=== PATIENT | male | born 1965 | race Caucasian/White ===

== ENCOUNTER 2016-08-27 06:32 | Emergency (ER) | payer MEDICAID, OTHER ==
[~2016-08-27] VITALS: Ht 170.2 cm; Wt 65.0 kg
[~2016-08-27 06:32] MED LIST: ALBU8I INH; ASPI81TA82 PO; ATOR10 PO; GABA600T PO; LEVO.025 PO; METO25 PO
[2016-08-27 06:35] VITALS: BP 177/111; PULSE 72; RESP 18; TEMP 97.5; O2SAT 100
[2016-08-27] MEDS ORDERED: LIDOCAINE 1%/EPINEPHrine 1:100,000 SOLN 20 ML VIAL INFIL ONE (07:15)
[2016-08-27] MEDS ORDERED: HYDROmorphone HCL PF 1 MG/ML VIAL IM ONE (07:15)
[2016-08-27] MEDS ORDERED: BACT800T5 PO (07:54)
--- NOTE | 2016-08-27 07:54 | PD ---
HPI Chief Complaint: Skin Problem Time Seen by Provider: 07:02 Travel History International Travel<30 days: No Contact w/Intl Traveler<30days: No Traveled to known affect area: No History of Present Illness HPI 51-year-old male presents emergency department complaining of pain and swelling under his right arm for the past 2-3 days, worsening. There is erythema redness warmth and tenderness. His had one abscess there about a year or so ago. It had multiple skin infections before. No fevers chills, nausea vomiting , or other evidence of systemic infection. No other complaints. 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), 05/2007 (finger), 01/2011 (scrotum), 12/2013 (arm), 12/2014 (arm) Reported Meds & Prescriptions Reported Meds & Active Scripts Active Levothyroxine 25 mcg (Levothyroxine Sodium) 25 Mcg Tab 25 Mcg PO DAILY Metoprolol Tartrate 25 mg (Metoprolol Tartrate) 25 Mg Tab 25 Mg PO Q12HR Lipitor 10 mg tab (Atorvastatin) 10 Mg Tab 10 Mg PO DAILY Gabapentin 600 Mg Tab 600 Mg PO TID Ventolin Hfa (Albuterol Sulfate) 60 Puff/8 Gm Aero 2 Puff INH Q4H PRN 30 Days Reported Aspir-81 (Aspirin) 81 Mg Tab 81 Mg PO BID Review of Systems Except as stated in HPI: all other systems reviewed are Neg Physical Exam Narrative GENERAL: Well-appearing 51-year-old man, no acute distress. SKIN: Warm and dry. CARDIOVASCULAR: Warm and well perfused. RESPIRATORY: Normal rate and effort. MUSCULOSKELETAL: Focus examination the right axilla reveals some erythema fullness to the right axilla. There is 2 pustules. There is some induration but no significant organization, or fluctuance. NEUROLOGICAL: Awake and alert. No gross deficits. Data Data Last Documented VS Vital Signs Date Time Temp Pulse Resp B/P Pulse Ox O2 Delivery O2 Flow Rate FiO2 08/27/16 06:51 18 08/27/16 06:35 97.5 72 177/111 100 Orders Hydromorphone Pf Inj (Dilaudid Pf Inj) (08/27/16 07:15) Lidocai-Epi 1%-1:100,000 Inj (Xylocaine- (08/27/16 07:15) Ed Poc Ultrasound (08/27/16 ) Sulfamet-Trimeth Ds 800-160 Mg (Bactrim (08/27/16 08:00) MDM Medical Decision Making Medical Screen Exam Complete: Yes Emergency Medical Condition: Yes Differential Diagnosis Abscess, phlegmon, cellulitis, other Narrative Course Medical decision making 50-year-old male presents emergency Department with soft tissue infection under his right axilla. There is no clear fluctuance. Examined under ultrasound shows no drainable collections. Patient will be placed on antibiotics, reassess it progresses. Procedures Procedure Narrative Point of care ultrasound: Focused soft tissue ultrasounds perform a me at the bedside for the purpose of evaluating for drainable fluid collections. No drainable fluid collections were identified in the right axilla. Diagnosis Primary Impression: Cellulitis of right axilla Patient Instructions: Narcotic given in the ED Additional Instructions: Take antibiotics as prescribed. Follow-up with your primary doctor in 2-3 days. Return to the emergency department for any new or worsening symptoms. Med/Other Pt SpecificInfo: Prescription(s) given Scripts Sulfamethoxazole-Trimethoprim (Bactrim DS)800-160 Mg Tab1 Tab PO BID 7 Days Prov:Ashutosh Peres MD 08/27/16 Disposition: 01 DISCHARGE HOME Condition: Stable Ashutosh Peres MD August 27, 2016 07:54
[2016-08-27] MEDS ORDERED: SULFAMETHOXAZOLE-TRIMETHOPRIM DS 800-160 MG TAB PO ONE (08:00)
[2016-08-27 08:56] VITALS: BP 192/95
== END 2016-08-27 08:59 | disposition home or self-care (01) ==
LOC: NEPC 06:32
DX: L03.111 Cellulitis of right axilla (principal); G89.29 Other chronic pain; J44.9 Chronic obstructive pulmonary disease, unspecified; Q85.00 Neurofibromatosis, unspecified; I10 Essential (primary) hypertension; E78.5 Hyperlipidemia, unspecified; Z79.82 Long term (current) use of aspirin
CPT/HCPCS: 96372; 99284; J1170

== ENCOUNTER 2016-12-03 11:24 | Inpatient (IN) | payer MEDICAID ==
[2016-12-03] VITALS (7 sets, daily range): BP systolic 117–147; BP diastolic 60–82; PULSE 70–86; RESP 16–28; TEMP 96.4–98.4; O2SAT 89–100
[~2016-12-03] VITALS: Ht 167.6 cm; Wt 74.2 kg
[~2016-12-03 11:24] MED LIST changes: +BACT800T5 PO
[2016-12-03] MEDS ORDERED: SODIUM CHLOR 0.9% 1000 ML INJ 1,000 ML IV ONE (12:00)
[2016-12-03] MEDS ORDERED: SODIUM CHLORIDE 0.9% FLUSH 10 ML FLUSH IVF PRN (12:00)
[2016-12-03] MEDS ORDERED: ONDANSETRON HCL 4 MG/2 ML VIAL IVP ONE (12:00)
[2016-12-03] MEDS ORDERED: methylPREDNISolone SOD SUCC 125 MG/2 ML VIAL IVP ONE (12:00)
--- NOTE | 2016-12-03 12:01 | PD ---
HPI Chief Complaint: GI Complaint Time Seen by Provider: 11:39 Travel History International Travel<30 days: No Contact w/Intl Traveler<30days: No Traveled to known affect area: No History of Present Illness HPI Patient is a 51-year-old male with history of COPD, chronic pain, neurofibromatosis, tobacco abuse, COPD, hypothyroidism, presents to emergency room with multiple complaints. Patient reports that he has not been feeling well since last night, patient reports that he has been wheezing and coughing. Reports that he smokes cigarettes and was only able to smoke 2 cigarettes today. Patient reports that last night, he had an episode of vomiting, reports no abdominal pain at this time. Reports that he feels tremulous and shaky all over. Reports overall decreased appetite. Patient denies any chest pain this time, denies any fevers or chills. Patient denies any sick contacts. PFSH Past Medical History Arthritis: No Asthma: No Autoimmune Disease: No Blood Disorders: No Anxiety: Yes Depression: Yes Heart Rhythm Problems: No Cancer: No Cardiac Catheterization: No Cardiovascular Problems: Yes (CAD; HTN) High Cholesterol: No Chemotherapy: No Chest Pain: No Congestive Heart Failure: No COPD: No Cerebrovascular Accident: No Diabetes: No Diminished Hearing: No Endocrine: No GERD: Yes Glaucoma: No Genitourinary: No Headaches: Yes Hepatitis: No Hiatal Hernia: No Hypertension: No Immune Disorder: No Kidney Stones: No Musculoskeletal: Yes Neurologic: Yes Psychiatric: Yes Reproductive: No Respiratory: No Migraines: Yes Myocardial Infarction: No Radiation Therapy: No Renal Failure: No Seizures: No Sickle Cell Disease: No Sleep Apnea: No Ulcer: No Past Surgical History Abdominal Surgery: Yes AICD: No Appendectomy: Yes Arteriovenous Shunt: No Body Medical Devices: unknown Cardiac Surgery: No Cholecystectomy: No Coronary Artery Bypass Graft: No Ear Surgery: No Eye Surgery: No Genitourinary Surgery: Yes (TESTICLE) Gynecologic Surgery: No Insulin Pump: No Joint Replacement: No Neurologic Surgery: Yes (BACK FX REPAIR) Oral Surgery: No Pacemaker: No Thoracic Surgery: No Tonsillectomy: Yes Other Surgery: Yes (skingraft) Family History Family Myocardial Infarction: Yes (FATHER CO) Social History Alcohol Use: No (HX OF USE) Tobacco Use: Yes (1 PACK DAILY) Substance Use: Yes (MARIJUANA) Allergies-Medications (Allergen,Severity, Reaction): Coded Allergies: codeine (Unverified Adverse Reaction, Severe, NAUSEA & VOMITING, 12/03/16) *MDRO Multi-Drug Resistant Organism (Verified Adverse Reaction, Unknown, ) 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), 04/2007 (hand), 05/2007 (finger), 01/2011 (scrotum), 12/2013 (arm), 12/2014 (arm) Reported Meds & Prescriptions Reported Meds & Active Scripts Active Reported Clopidogrel (Clopidogrel Bisulfate) 75 Mg Tab 75 Mg PO DAILY Amitriptyline (Amitriptyline HCl) 25 Mg Tab 25 Mg PO HS Proventil Hfa 6.7 GM Inh (Albuterol Sulfate) 90 Mcg/Act Aer 1 Puff INH Q4-6H PRN Flexeril (Cyclobenzaprine HCl) 5 Mg Tab 5 Mg PO TID Metoprolol Tartrate 25 Mg Tab 25 Mg PO BID Lansoprazole 15 Mg Capdr 15 Mg PO DAILY Effexor (Venlafaxine HCl) 75 Mg Tab 75 Mg PO DAILY Lisinopril 20 Mg Tab 20 Mg PO DAILY Gabapentin 300 Mg Cap 600 Mg PO BID Review of Systems General / Constitutional: No: Fever, Chills Eyes: No: Visual changes HENT: No: Headaches Cardiovascular: No: Chest Pain or Discomfort Respiratory: Positive: Cough, Shortness of Breath, Wheezing Gastrointestinal: Positive: Nausea, Vomiting, No: Diarrhea, Abdominal Pain, Constipation Genitourinary: No: Dysuria Musculoskeletal: No: Pain Skin: No Rash Neurologic: No: Weakness Psychiatric: No: Depression Endocrine: No: Polydipsia Hematologic/Lymphatic: No: Easy Bruising Physical Exam Narrative GENERAL: mild distress SKIN: Focused skin assessment warm/dry. HEAD: Atraumatic. Normocephalic. EYES: Pupils equal and round. No scleral icterus. No injection or drainage. ENT: No nasal bleeding or discharge. Mucous membranes pink and moist. NECK: Trachea midline. No JVD. CARDIOVASCULAR: Regular rate and rhythm. No murmur appreciated. RESPIRATORY: No accessory muscle use. Patient with scattered wheezing to upper and lower lobes the lungs. GASTROINTESTINAL: Abdomen soft, non-tender, nondistended. Hepatic and splenic margins not palpable. MUSCULOSKELETAL: No obvious deformities. No clubbing. No cyanosis. No edema. NEUROLOGICAL: Awake and alert. No obvious cranial nerve deficits. Motor grossly within normal limits. Normal speech. PSYCHIATRIC: Appropriate mood and affect; insight and judgment normal. Data Data Last Documented VS Vital Signs Date Time Temp Pulse Resp B/P (MAP) Pulse Ox O2 Delivery O2 Flow Rate FiO2 12/03/16 12:15 100 21 12/03/16 11:49 Nasal Cannula 2.00 12/03/16 11:40 98.0 77 28 Orders Orders Complete Blood Count With Diff (12/03/16 11:46) Comprehensive Metabolic Panel (12/03/16 11:46) B-Type Natriuretic Peptide (12/03/16 11:46) Act Partial Throm Time (Ptt) (12/03/16 11:46) Prothrombin Time / Inr (Pt) (12/03/16 11:46) Magnesium (Mg) (12/03/16 11:46) Ckmb (Isoenzyme) Profile (12/03/16 11:46) Troponin I (12/03/16 11:46) Arterial Blood Gas (Abg) (12/03/16 11:46) Urinalysis - C+S If Indicated (12/03/16 11:46) Blood Culture (12/03/16 11:46) Iv Access Insert/Monitor (12/03/16 11:46) Electrocardiogram (12/03/16 11:46) Ecg Monitoring (12/03/16 11:46) Oximetry (12/03/16 11:46) Chest, Single Ap (12/03/16 11:46) Sodium Chloride 0.9% Flush (Ns Flush) (12/03/16 12:00) Methylprednisolone So Succ Inj (Solumedr (12/03/16 12:00) Albuterol-Ipratropium Neb (Duoneb Neb) (12/03/16 12:00) Lactic Acid Sepsis Protocol (12/03/16 11:48) Sodium Chlor 0.9% 1000 Ml Inj (Ns 1000 M (12/03/16 12:00) Ondansetron Inj (Zofran Inj) (12/03/16 12:00) Urinary Catheter Insert/Apply (12/03/16 12:45) Admit To Inpatient (12/03/16 ) Vital Signs (Adult) Q4H (12/03/16 14:32) Activity Oob With Assistance (12/03/16 14:32) Intake + Output RENETTA.QSHIFT (12/03/16 14:32) Diet Regular Basic (12/03/16 Dinner) Sodium Chlor 0.9% 1000 Ml Inj (Ns 1000 M (12/03/16 15:00) Sodium Chloride 0.9% Flush (Ns Flush) (12/03/16 21:00) Ondansetron Inj (Zofran Inj) (12/03/16 14:45) Comprehensive Metabolic Panel (12/04/16 06:00) Complete Blood Count With Diff (12/04/16 06:00) Pt Request For Service (12/03/16 14:32) Case Management Consult (12/03/16 14:32) Heparin Inj (Heparin Inj) (12/03/16 15:00) Scd Bilateral/Knee High RENETTA.BID (12/03/16 14:32) Naloxone Inj (Narcan Inj) (12/03/16 14:45) Docusate Sodium-Senna (Madhavi-Colace) (12/03/16 21:00) Magnesium Hydroxide Liq (Milk Of Magnesi (12/03/16 14:45) Sennosides (Senokot) (12/03/16 14:45) Bisacodyl Supp (Dulcolax Supp) (12/03/16 14:45) Lactulose Liq (Lactulose Liq) (12/03/16 14:45) Inpatient Certification (12/03/16 ) Creatine Kinase (Cpk) (12/03/16 14:36) Sodium, Random Urine (12/03/16 14:36) Creatinine, Random Urine (12/03/16 14:36) Consult Nephrology (12/03/16 ) Us Kidney/Renal/Bladder (12/03/16 ) Clopidogrel (Plavix) (12/04/16 09:00) Metoprolol Tartrate (Lopressor) (12/03/16 21:00) Pantoprazole (Protonix) (12/04/16 09:00) Admit Order (Ed Use Only) (12/03/16 14:39) Albuterol Hfa Inh (Ventolin Hfa Inh) (12/03/16 15:00) Labs Laboratory Tests Test 12/03/16 11:45 12/03/16 12:20 12/03/16 13:00 White Blood Count 10.6 TH/MM3 Red Blood Count 4.08 MIL/MM3 Hemoglobin 12.6 GM/DL Hematocrit 36.8 % Mean Corpuscular Volume 90.2 FL Mean Corpuscular Hemoglobin 30.8 PG Mean Corpuscular Hemoglobin Concent 34.1 % Red Cell Distribution Width 14.0 % Platelet Count 325 TH/MM3 Mean Platelet Volume 8.2 FL Neutrophils (%) (Auto) 54.5 % Lymphocytes (%) (Auto) 27.5 % Monocytes (%) (Auto) 14.2 % Eosinophils (%) (Auto) 3.2 % Basophils (%) (Auto) 0.6 % Neutrophils # (Auto) 5.8 TH/MM3 Lymphocytes # (Auto) 2.9 TH/MM3 Monocytes # (Auto) 1.5 TH/MM3 Eosinophils # (Auto) 0.3 TH/MM3 Basophils # (Auto) 0.1 TH/MM3 CBC Comment DIFF FINAL Differential Comment Prothrombin Time 9.6 SEC Prothromb Time International Ratio 0.9 RATIO Activated Partial Thromboplast Time 28.8 SEC Blood Urea Nitrogen 78 MG/DL Creatinine 6.13 MG/DL Random Glucose 93 MG/DL Total Protein 7.4 GM/DL Albumin 3.3 GM/DL Calcium Level 9.2 MG/DL Magnesium Level 2.9 MG/DL Alkaline Phosphatase 103 U/L Aspartate Amino Transf (AST/SGOT) 12 U/L Alanine Aminotransferase (ALT/SGPT) 16 U/L Total Bilirubin 0.4 MG/DL Sodium Level 129 MEQ/L Potassium Level 4.5 MEQ/L Chloride Level 86 MEQ/L Carbon Dioxide Level 35.2 MEQ/L Anion Gap 8 MEQ/L Estimat Glomerular Filtration Rate 10 ML/MIN Lactic Acid Level 1.3 mmol/L Total Creatine Kinase 28 U/L Troponin I LESS THAN 0.02 NG/ML B-Type Natriuretic Peptide 10 PG/ML Blood Gas Puncture Site LT BRACHIAL Blood Gas Patient Temperature 98.6 Blood Gas HCO3 33 mmol/L Blood Gas Base Excess 8.9 mmol/L Blood Gas Oxygen Saturation 85 % Arterial Blood pH 7.47 Arterial Blood Partial Pressure CO2 45 mmHg Arterial Blood Partial Pressure O2 61 mmHG Arterial Blood Oxygen Content 13.2 Vol % Arterial Blood Carboxyhemoglobin 8.4 % Arterial Blood Methemoglobin 0.7 % Blood Gas Hemoglobin 11.1 G/DL Oxygen Delivery Device RA Urine Color LIGHT-YELLOW Urine Turbidity CLEAR Urine pH 7.5 Urine Specific [place] 1.008 Urine Protein TRACE mg/dL Urine Glucose (UA) NEG mg/dL Urine Ketones NEG mg/dL Urine Occult Blood TRACE Urine Nitrite NEG Urine Bilirubin NEG Urine Urobilinogen LESS THAN 2.0 MG/DL Urine Leukocyte Esterase NEG Urine RBC 1 /hpf Urine WBC LESS THAN 1 /hpf Microscopic Urinalysis Comment CULT NOT INDICATED MDM Medical Decision Making Medical Screen Exam Complete: Yes Emergency Medical Condition: Yes Interpretation(s) EKG at 1150: NSR at 75bpm, qt/qtc: 341/370, no acute st or t wave changes Vital Signs Date Time Temp Pulse Resp B/P (MAP) Pulse Ox O2 Delivery O2 Flow Rate FiO2 12/03/16 11:49 100 Nasal Cannula 2.00 12/03/16 11:40 98.0 77 28 118/66 (83) Room Air 12/03/16 11:27 98.1 86 28 117/60 (79) 89 Room Air Differential Diagnosis Differential includes COPD exacerbation, pneumonia, arrhythmia, ACS, gastroenteritis, electrolyte abnormality, tobacco abuse Narrative Course Patient is a 51-year-old male who presents to emergency room complaints of not feeling well since last night. Symptoms began last night with nausea and vomiting 1, reports no abdominal pain or nausea this morning. Patient reports that this morning, he was only able to smoke 2 cigarettes, he has been feeling short of breath and has been coughing and wheezing. Patient was placed on a bus monitor upon arrival to the emergency room. EKG was obtained, no acute ST-T wave changes. X-ray of the chest ordered, lab work ordered including blood cultures ordered as patient has increased respiratory rate and hypoxia. His oxygen saturation is 89% on room air. Patient is wheezing on exam and does have history of COPD. IV steroids as well as neb treatments ordered. CBC & BMP Diagram 12/03/16 11:45 Laboratory Tests Test 12/03/16 11:45 12/03/16 12:20 White Blood Count 10.6 TH/MM3 (4.0-11.0) Red Blood Count 4.08 MIL/MM3 (4.50-5.90) Hemoglobin 12.6 GM/DL (13.0-17.0) Hematocrit 36.8 % (39.0-51.0) Mean Corpuscular Volume 90.2 FL (80.0-100.0) Mean Corpuscular Hemoglobin 30.8 PG (27.0-34.0) Mean Corpuscular Hemoglobin Concent 34.1 % (32.0-36.0) Red Cell Distribution Width 14.0 % (11.6-17.2) Platelet Count 325 TH/MM3 (150-450) Mean Platelet Volume 8.2 FL (7.0-11.0) Neutrophils (%) (Auto) 54.5 % (16.0-70.0) Lymphocytes (%) (Auto) 27.5 % (9.0-44.0) Monocytes (%) (Auto) 14.2 % (0.0-8.0) Eosinophils (%) (Auto) 3.2 % (0.0-4.0) Basophils (%) (Auto) 0.6 % (0.0-2.0) Neutrophils # (Auto) 5.8 TH/MM3 (1.8-7.7) Lymphocytes # (Auto) 2.9 TH/MM3 (1.0-4.8) Monocytes # (Auto) 1.5 TH/MM3 (0-0.9) Eosinophils # (Auto) 0.3 TH/MM3 (0-0.4) Basophils # (Auto) 0.1 TH/MM3 (0-0.2) CBC Comment DIFF FINAL Differential Comment Prothrombin Time 9.6 SEC (9.8-11.6) Prothromb Time International Ratio 0.9 RATIO Activated Partial Thromboplast Time 28.8 SEC (24.3-30.1) Blood Urea Nitrogen 78 MG/DL (7-18) Creatinine 6.13 MG/DL (0.60-1.30) Random Glucose 93 MG/DL (74-106) Albumin 3.3 GM/DL (3.4-5.0) Calcium Level 9.2 MG/DL (8.5-10.1) Magnesium Level 2.9 MG/DL (1.5-2.5) Aspartate Amino Transf (AST/SGOT) 12 U/L (15-37) Alanine Aminotransferase (ALT/SGPT) 16 U/L (12-78) Sodium Level 129 MEQ/L (136-145) Potassium Level 4.5 MEQ/L (3.5-5.1) Chloride Level 86 MEQ/L (98-107) Carbon Dioxide Level 35.2 MEQ/L (21.0-32.0) Anion Gap 8 MEQ/L (5-15) Estimat Glomerular Filtration Rate 10 ML/MIN (>89) Lactic Acid Level 1.3 mmol/L (0.4-2.0) Blood Gas Puncture Site LT BRACHIAL Blood Gas Patient Temperature 98.6 Blood Gas HCO3 33 mmol/L (22-26) Blood Gas Base Excess 8.9 mmol/L (-2-2) Blood Gas Oxygen Saturation 85 % (90-100) Arterial Blood pH 7.47 (7.380-7.420) Arterial Blood Partial Pressure CO2 45 mmHg (38-42) Arterial Blood Partial Pressure O2 61 mmHG (61-120) Arterial Blood Oxygen Content 13.2 Vol % (12.0-20.0) Arterial Blood Carboxyhemoglobin 8.4 % (0-4) Arterial Blood Methemoglobin 0.7 % (0-2) Blood Gas Hemoglobin 11.1 G/DL (12.0-16.0) Oxygen Delivery Device RA patient hypoxic with o2 sat of 85% on room air, will put patient on 2L NC of oxygen bun 78/ cr 6.13 - patient with acute renal failure, cr on 01/07/15 was 0.87. [place] catheter ordered to monitor I's and O's Patient will require admission to the hospital Case reviewed with Dr. Cladwell who accepts pt to service Critical Care Narrative Aggregate critical care time was 30 minutes. Time to perform other separately billable procedures was not included in the critical care time. My time did not include minutes spent treating any other patients simultaneously or on activities that did not directly contribute to the patient's treatment. The services I provided to this patient were to treat and/or prevent clinically significant deterioration that could result in: , decompensation, deterioration I provided critical care services requiring my management, as noted below: Chart data review, documentation time, medication orders and management, vital sign assessments/reviewing monitor data, ordering and reviewing lab tests, ordering and interpreting/reviewing x-rays and diagnostic studies, care of the patient and discussion of the patient with the admitting physicians. Diagnosis Primary Impression: Hypoxia Additional Impressions: COPD exacerbation Renal failure Admitting Information Admitting Physician Requests: Admit Mara Piedra DO Dec 03, 2016 12:01
[2016-12-03] MEDS ORDERED: GABA300C5 PO (12:04)
[2016-12-03] MEDS ORDERED: LISI-515 PO (12:04)
[2016-12-03] MEDS ORDERED: ALBU6.7H INH (12:04)
[2016-12-03] MEDS ORDERED: CYCL5TAB PO (12:04)
[2016-12-03] MEDS ORDERED: VENL75TA PO (12:04)
[2016-12-03] MEDS ORDERED: METO25TA3 PO (12:04)
[2016-12-03] MEDS ORDERED: LANS15CA PO (12:04)
[2016-12-03] MEDS ORDERED: AMIT25TA9 PO (12:05)
[2016-12-03] MEDS ORDERED: CLOP75TA PO (12:05)
[2016-12-03] MEDS: RESP: ALBUTEROL 2.5 MG/IPRATROPIUM 0.5 MG NEB (SCH) INH ×2 (12:13→12:14)
[2016-12-03 12:18] LABS: AUTOMATED NEUTROPHIL # 5.8 TH/MM3 (1.8-7.7); BASOPHIL # 0.1 TH/MM3 (0-0.2); BASOPHIL % 0.6 % (0.0-2.0); EOSINOPHIL # 0.3 TH/MM3 (0-0.4); EOSINOPHIL % 3.2 % (0.0-4.0); HEMATOCRIT 36.8 % (39.0-51.0); HEMO FLAGS DIFF FINAL; LYMPH % 27.5 % (9.0-44.0); LYMPHOCYTE # 2.9 TH/MM3 (1.0-4.8); MEAN CELL VOLUME 90.2 FL (80.0-100.0); MEAN CORPUSCULAR HEMOGLOBIN 30.8 PG (27.0-34.0); MEAN CORPUSCULAR HGB CONC 34.1 % (32.0-36.0); MONO % 14.2 % (0.0-8.0); NEUT % 54.5 % (16.0-70.0); PLATELET COUNT 325 TH/MM3 (150-450); RED BLOOD COUNT 4.08 MIL/MM3 (4.50-5.90); WHITE BLOOD COUNT 10.6 TH/MM3 (4.0-11.0)
[2016-12-03 12:29] LABS: APTT (PATIENT) 28.8 SEC (24.3-30.1); INTERNATIONAL NORMALIZED RATIO 0.9 RATIO; PROTHROMBIN TIME - PATIENT 9.6 SEC (9.8-11.6)
[2016-12-03 12:34] LABS: BLOOD GAS BASE EXCESS 8.9 mmol/L (-2-2); BLOOD GAS CARBOXYHEMOGLOBIN 8.4 % (0-4); BLOOD GAS HCO3 33 mmol/L (22-26); BLOOD GAS METHEMOGLOBIN 0.7 % (0-2); BLOOD GAS O2 HGB SATURATION 85 % (90-100); BLOOD GAS OXYGEN CONTENT 13.2 Vol % (12.0-20.0); BLOOD GAS PCO2 45 mmHg (38-42); BLOOD GAS PO2 61 mmHG (61-120); BLOOD GAS TOTAL HGB 11.1 G/DL (12.0-16.0); CRITICAL VALUE YES; OXYGEN DEVICE RA; TEMP CORR TO 98.6
[2016-12-03 12:35] LABS: ALT (GPT) 16 U/L (12-78); ANION GAP 8 MEQ/L (5-15); AST (GOT) 12 U/L (15-37); BICARBONATE 35.2 MEQ/L (21.0-32.0); BLOOD UREA NITROGEN 78 MG/DL (7-18); CHLORIDE 86 MEQ/L (98-107); GLOMERULAR FILTRATION RATE 10 ML/MIN (>89); MAGNESIUM 2.9 MG/DL (1.5-2.5); POTASSIUM 4.5 MEQ/L (3.5-5.1); SODIUM (NA) 129 MEQ/L (136-145)
[2016-12-03 12:35] LABS: DRAW SITE LT BRACHIAL; NUMBER OF ARTERIAL PUNCTURES 1; STAT YES; ULNAR PULSE Y
[2016-12-03 12:39] LABS: ALKALINE PHOSPHATASE 103 U/L (45-117); TOTAL BILIRUBIN ADULT 0.4 MG/DL (0.2-1.0)
[2016-12-03 12:56] LABS: CREATINE KINASE 28 U/L (39-308)
--- NOTE | 2016-12-03 13:04 | RADRPT ---
EXAM DATE/TIME: 12/03/2016 12:50 [facility] COMPARISON: CHEST SINGLE AP, January 06, 2015, 10:47. INDICATIONS : Possible seizures, not feeling right. MEDICAL HISTORY : None. SURGICAL HISTORY : None. ENCOUNTER: Initial ACUITY: 1 day PAIN SCORE: Non-responsive. LOCATION: Bilateral chest FINDINGS: A single view of the chest demonstrates the lungs to be symmetrically aerated without evidence of mas s, infiltrate or effusion. The cardiomediastinal contours are unremarkable. Osseous structures are intact. CONCLUSION: No acute disease. Fareed Lynn MD FACR on December 03, 2016 at 13:02 Board Certified Radiologist. This report was verified electronically.
[2016-12-03 13:19] LABS: BLOOD, URINE TRACE (NEG); COMMENT (UR) CULT NOT INDICATED; CULTURE IF INDICATED CULT NOT INDICATED; GLUCOSE,URINE NEG (NEG); KETONE, URINE NEG (NEG); NITRITE,URINE NEG (NEG); PH, URINE 7.5 (5.0-8.5); URINE COLOR LIGHT-YELLOW (YELLW/STRAW)
[2016-12-03] MEDS ORDERED: BISACODYL 10 MG SUPP RECTAL PRN (14:45)
[2016-12-03] MEDS ORDERED: LACTULOSE SYRUP 20 GM/30 ML CUP PO PRN (14:45)
[2016-12-03] MEDS ORDERED: MAGNESIUM HYDROXIDE SUSP 30 ML CUP PO PRN (14:45)
[2016-12-03] MEDS ORDERED: SENNOSIDES 8.6 MG TAB PO PRN (14:45)
[2016-12-03] MEDS ORDERED: ONDANSETRON HCL 4 MG/2 ML VIAL IVP PRN (14:45)
[2016-12-03] MEDS ORDERED: SODIUM CHLORIDE 0.9% FLUSH 10 ML FLUSH IV FLUSH PRN (14:45)
[2016-12-03] MEDS ORDERED: NALOXONE HCL 0.4 MG/ML AMP IV PRN (14:45)
[2016-12-03] MEDS ORDERED: ALBUTEROL SULFATE 90 MCG/ACT HFA 18 GM INHALER INH PRN (15:00)
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
[2016-12-03] MEDS ORDERED: DIATRIZOATE MEGLUM/DIATRIZOATE SOD 9 ML CUP ONE (16:43)
[2016-12-03] MEDS: HEPARIN SODIUM - SQ 10,000 UNITS/ML VIAL SQ SCH (16:50)
[2016-12-03] MEDS: SODIUM CHLOR 0.9% 1000 ML INJ 1,000 ML IV SCH ×2 (16:50→20:05)
[2016-12-03] MEDS ORDERED: DIATRIZOATE MEGLUM/DIATRIZOATE SOD 9 ML CUP PO ONE (17:00)
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
--- NOTE | 2016-12-03 17:15 | RADRPT ---
EXAM DATE/TIME: 12/03/2016 16:23 [facility] COMPARISON: No previous studies available for comparison. INDICATIONS : Increasd BUN/Creatnine. MEDICAL HISTORY : Hypertension. Gastroesophageal reflux disease. Numbness. Dizziness. Depression. Anxiety. Claustroph obia. SURGICAL HISTORY : Tonsillectomy. Appendectomy. Back surgery. Testicular surgery. Left foot surgery. Skin graft. ENCOUNTER: Initial ACUITY: 1 day PAIN SCORE: 0/10 LOCATION: Bilateral flank MEASUREMENTS: RIGHT KIDNEY: 10.4 x 4.3 x 5.0 cm LEFT KIDNEY: 11.6 x 5.2 x 4.8 cm FINDINGS: RIGHT KIDNEY: Renal cortex is normal in thickness and echotexture. No hydronephrosis, stone, or mass. LEFT KIDNEY: Renal cortex is normal in thickness and echotexture. No hydronephrosis, stone, or mass. BLADDER: A South catheter is present in the bladder. There is no focal abnormality. CONCLUSION: The kidneys are unremarkable in appearance with no evidence of hydronephrosis. Zac Zuniga MD on December 03, 2016 at 17:13 Board Certified Radiologist. This report was verified electronically.
--- NOTE | 2016-12-03 19:28 | RADRPT ---
EXAM DATE/TIME: 12/03/2016 19:05 [facility] COMPARISON: CT ABDOMEN & PELVIS W CONTRAST, January 10, 2010, 18:45. INDICATIONS : Decreased appetite with nausea past week. ORAL CONTRAST: Prescribed oral contrast ingested. RADIATION DOSE: 13.46 CTDIvol (mGy) MEDICAL HISTORY : Cardiovascular disease. Hypertension. Chronic obstructive pulmonary disease.GERD SURGICAL HISTORY : Appendectomy. ENCOUNTER: Initial ACUITY: 1 week PAIN SCALE: 0/10 LOCATION: abdomen TECHNIQUE: Volumetric scanning of the abdomen and pelvis was performed. Using automated exposure control and ad justment of the mA and/or kV according to patient size, radiation dose was kept as low as reasonably achievable to obtain optimal diagnostic quality images. DICOM format image data is available electro nically for review and comparison. FINDINGS: LOWER LUNGS: The visualized lower lungs are clear. LIVER: Homogeneous density without lesion. There is no dilation of the biliary tree. No calcified gallston es. SPLEEN: Normal size without lesion. PANCREAS: Within normal limits. KIDNEYS: Normal in size and shape. There is no mass, stone, or hydronephrosis. ADRENAL GLANDS: Within normal limits. VASCULAR: There is no aortic aneurysm. BOWEL/MESENTERY: The stomach, small bowel, and colon demonstrate no acute abnormality. There is no free intraperitone al air or fluid. ABDOMINAL WALL: Within normal limits. RETROPERITONEUM: There is no lymphadenopathy. BLADDER: A South catheter is present with small air-fluid level. REPRODUCTIVE: Within normal limits. INGUINAL: There is no lymphadenopathy or hernia. MUSCULOSKELETAL: Within normal limits for patient age. CONCLUSION: 1. Unremarkable bowel gas pattern with no inflammatory change or obstruction. 2. Unremarkable gallbladder. Zac Zuniga MD on December 03, 2016 at 19:24 Board Certified Radiologist. This report was verified electronically.
[2016-12-03] MEDS: SODIUM CHLORIDE 0.9% FLUSH 10 ML FLUSH IV FLUSH SCH (20:00)
[2016-12-03] MEDS: DOCUSATE SODIUM 50 MG/SENNA 8.6 MG TAB PO SCH (20:05)
[2016-12-03] MEDS: METOPROLOL TARTRATE 25 MG TAB PO SCH (20:05)
[2016-12-03] MEDS: RESP: ALBUTEROL 2.5 MG/IPRATROPIUM 0.5 MG NEB (SCH) NEB (22:00)
[2016-12-03] MEDS ORDERED: diphenhydrAMINE HCL 50 MG CAP PO ONE (22:45)
[2016-12-03] MEDS: ACETAMINOPHEN 325 MG TAB PO PRN (23:16)
[2016-12-04] VITALS (7 sets, daily range): BP systolic 113–142; BP diastolic 60–82; PULSE 72–80; RESP 16–18; TEMP 96.3–98; O2SAT 97–100
[2016-12-04] MEDS: HEPARIN SODIUM - SQ 10,000 UNITS/ML VIAL SQ SCH ×2 (03:23→15:35)
[2016-12-04] MEDS: SODIUM CHLOR 0.9% 1000 ML INJ 1,000 ML IV SCH ×3 (03:28→17:41)
[2016-12-04] MEDS: RESP: ALBUTEROL 2.5 MG/IPRATROPIUM 0.5 MG NEB (SCH) NEB ×4 (04:41→21:36)
[2016-12-04 07:33] LABS: AUTOMATED NEUTROPHIL # 5.8 TH/MM3 (1.8-7.7); BASOPHIL % 0.2 % (0.0-2.0); EOSINOPHIL % 0.1 % (0.0-4.0); HEMATOCRIT 32.5 % (39.0-51.0); HEMO FLAGS DIFF FINAL; LYMPH % 15.7 % (9.0-44.0); LYMPHOCYTE # 1.3 TH/MM3 (1.0-4.8); MEAN CELL VOLUME 91.8 FL (80.0-100.0); MEAN CORPUSCULAR HEMOGLOBIN 31.5 PG (27.0-34.0); MEAN CORPUSCULAR HGB CONC 34.3 % (32.0-36.0); MONO % 11.1 % (0.0-8.0); NEUT % 72.9 % (16.0-70.0); PLATELET COUNT 261 TH/MM3 (150-450); RED BLOOD COUNT 3.54 MIL/MM3 (4.50-5.90); RED CELL DISTRIBUTION WIDTH 13.5 % (11.6-17.2)
[2016-12-04 08:13] LABS: ALKALINE PHOSPHATASE 84 U/L (45-117); ALT (GPT) 13 U/L (12-78); ANION GAP 5 MEQ/L (5-15); AST (GOT) 10 U/L (15-37); BICARBONATE 30.6 MEQ/L (21.0-32.0); BLOOD UREA NITROGEN 59 MG/DL (7-18); CHLORIDE 100 MEQ/L (98-107); GLOMERULAR FILTRATION RATE 22 ML/MIN (>89); POTASSIUM 4.8 MEQ/L (3.5-5.1); SODIUM (NA) 136 MEQ/L (136-145); TOTAL BILIRUBIN ADULT 0.2 MG/DL (0.2-1.0)
[2016-12-04] MEDS: ASPIRIN EC 81 MG TABEC PO SCH (08:19)
[2016-12-04] MEDS: PANTOPRAZOLE SOD 20 MG DELAYED RELEASE TAB PO SCH (08:19)
[2016-12-04] MEDS: CLOPIDOGREL 75 MG TAB PO SCH (08:19)
[2016-12-04] MEDS: DOCUSATE SODIUM 50 MG/SENNA 8.6 MG TAB PO SCH ×2 (08:20→20:27)
[2016-12-04] MEDS: METOPROLOL TARTRATE 25 MG TAB PO SCH ×2 (08:20→20:26)
[2016-12-04] MEDS: SODIUM CHLORIDE 0.9% FLUSH 10 ML FLUSH IV FLUSH SCH ×2 (08:22→20:27)
[2016-12-04] MEDS: ACETAMINOPHEN 325 MG TAB PO PRN ×2 (08:22→20:26)
--- NOTE | 2016-12-04 13:49 | EKG ---
Date Performed: 12/03/2016 Time Performed: 11:50:45 PTAGE: 51 years EKG: Sinus rhythm SEPTAL MYOCARDIAL INFARCTION ABNORMAL ECG Compared to prior tracing no significant change PREVIOUS TRACING : 12/03/2016 11.50 DOCTOR: Sreekanth Cortez Interpretating Date/Time 12/04/2016 13:46:47
--- NOTE | 2016-12-04 19:02 | HHI.NPPN ---
Subjective History of Present Illness 51-year-old with acute renal failure and dehydration Review of Systems General Constitutional: Fatigue Objective Data Data 12/04/16 12/05/16 18:59 06:59 Intake Total 1440 ml Output Total 1200 ml Balance 240 ml Intake Oral 1440 ml Output Urine Total 1200 ml # Bowel Movements 0 Vital Signs Date Time Temp Pulse Resp B/P (MAP) Pulse Ox O2 Delivery O2 Flow Rate FiO2 12/04/16 17:36 98 12/04/16 16:00 96.4 76 16 118/67 (84) 100 12/04/16 12:00 98.0 73 17 137/72 (93) 97 12/04/16 11:02 99 12/04/16 09:22 18 12/04/16 08:00 96.3 72 17 114/65 (81) 100 12/04/16 00:00 96.6 73 18 113/60 (77) 99 12/03/16 22:03 97 Nasal Cannula 2.00 12/03/16 20:00 98.4 70 18 134/82 (99) 96 -: 12/04/16 0633 12/04/16 0633 Physical Exam General Appearance: Well Developed, Well Nourished Neck Neck Exam: Neck Supple Pulmonary Resp Exam: Clear Bilaterally, Breath Sounds Equal Cardiology CV Exam: Regular, Normal Sinus Rhythm Gastrointestinal/Abdomen GI Exam: Soft, Non-Tender, Bowel Sounds Present Extremeties Extremities Exam: No Edema Neurologic Neuro Exam: Alert, Awake Assessment/Plan Problem List: (1) Renal failure ICD Codes: N19 - Unspecified kidney failure Status: Acute Plan: Agree with IV hydration severe dehydration was resolving Ultrasound of the kidney was unremarkable At this point that he is recovering and she can be discharged from nephrology point of view if creatinine continues to decline We'll follow as needed (2) H/O neurofibromatosis ICD Codes: Q85.00 - History of neurofibromatosis Status: Chronic (3) Chronic pain ICD Codes: G89.29 - Other chronic pain Status: Chronic Plan: Uses marijuana Дмитрий Cordero MD Dec 04, 2016 19:02
--- NOTE | 2016-12-04 19:23 | HHI.PR ---
Subjective Remarks Patient seen this afternoon around 2:30 PM. Says he is feeling better. Shakes of almost resolved. Denies any nausea today. He feels that nausea and vomiting is secondary to his reflux. He says he smokes marijuana but refuses to discontinue. He says he thinks the marijuana causes nausea by increasing his appetite, then he feels full and nauseous. We discussed the possibility of narcotics exacerbating pre-existing gastroparesis, and I recommended complete cessation.denies any chest pain or shortness of breath. Objective Vital Signs Date Time Temp Pulse Resp B/P (MAP) Pulse Ox O2 Delivery O2 Flow Rate FiO2 12/04/16 17:36 98 12/04/16 16:00 96.4 76 16 118/67 (84) 100 12/04/16 12:00 98.0 73 17 137/72 (93) 97 12/04/16 11:02 99 12/04/16 09:22 18 12/04/16 08:00 96.3 72 17 114/65 (81) 100 12/04/16 00:00 96.6 73 18 113/60 (77) 99 12/03/16 22:03 97 Nasal Cannula 2.00 12/03/16 20:00 98.4 70 18 134/82 (99) 96 I/O 12/03/16 12/03/16 12/03/16 12/04/16 12/04/16 12/04/16 07:00 15:00 23:00 07:00 15:00 23:00 Intake Total 1000 ml 240 ml 1130 ml 3350 ml Output Total 850 ml 400 ml 1200 ml Balance 1000 ml -610 ml 730 ml 2150 ml Intake Oral 240 ml 240 ml 1440 ml IV Total 1000 ml 890 ml 1910 ml Output Urine Total 850 ml 400 ml 1200 ml # Bowel Movements 0 Result Diagram: 12/04/16 0633 12/04/16 0633 Objective Remarks GENERAL: sitting up in bed. Appears comfortable. Alert and oriented. No tremors today. SKIN: Warm and dry. HEAD: Normocephalic. EYES: No scleral icterus. No injection or drainage. NECK: Supple, trachea midline. No JVD. CARDIOVASCULAR: Regular rate and rhythm without murmurs, gallops, or rubs. RESPIRATORY: Breath sounds equal bilaterally. No accessory muscle use. GASTROINTESTINAL: Abdomen soft, non-tender, nondistended. MUSCULOSKELETAL: No cyanosis, or edema. BACK: Nontender without obvious deformity. No CVA tenderness. A/P Assessment and Plan == 12/04/16. creatinine improving 3.0 today. Renal ultrasound with no acute findings. Continue IV fluids. Nausea and vomiting on admission has resolved currently. Continue PPI, Tums. Could be marijuana hyperemesis versus gastroparesis exacerbated by narcotics. Nevertheless has improved. recommend complete cessation of both marijuana and narcotics. //Acute kidney injury -Creatinine 6.13 from suspected normal baseline. -1 L out over the first hour after South placement. Possible obstruction. -Ultrasound ordered and pending. -Hold lisinopril. Hold gabapentin. -Renal ultrasound with no acute findings. -Nephrology consulted. //Abdominal tenderness on exam Could be secondary to constipation or recent narcotics. Patient with nausea, vomiting, poor by mouth intake likely causing acute kidney injury -periUmbilical Tenderness to palpation on exam. CT abdomen with no acute findings. //Suspected toxic Encephalopathy -Confused, but nonfocal. -Patient was on gabapentin, likely supratherapeutic levels now. -Also with uremia. -Asterixis secondary to uremia. -Nonfocal on exam. -Pain to monitor and Treat acute kidney injury as above. //both metabolic and Respiratory alkalosis. -ABG reviewed. -Hypoxia secondary to smoking, high carboxyhemoglobin content. likely secondary to dehydration, uremia versus gabapentin toxicity. -Continue IV fluids. Continue to monitor. //Hypovolemic Hyponatremia. Acute. -Sodium 126 on admission. -Likely secondary to dehydration. Unknown baseline. -IV fluids. Nephrology following. Appreciate assistance. //Possible COPD exacerbation Doubt that this is a standard COPD exacerbation. X-ray no acute findings. She received nebs, IV steroids in the ER without improvement. Duo nebs ordered. Continue to monitor. //Coronary artery disease. Continue home medications of metoprolol, Plavix. //Depression. We'll hold home medications until kidney function improves. //Chronic back pain. Hold gabapentin secondary to suspected toxicity. Tylenol as necessary //GERD. Continue PPI. //Narcotic abuse Patient reports feeling his brothers narcotics several days prior to admission. -Counseling provided. Patient says he will not do this again. //Tobacco abuse. Cessation counseling provided. //Prophylaxis. SCDs. Subcutaneous heparin. Discharge Planning if creatinine continues improving, possible discharge tomorrow. Jorge Luis Caldwell MD Dec 04, 2016 19:23
[2016-12-04] MEDS: CALCIUM CARBONATE 500 MG CHEWABLE TAB CHEW SCH (20:26)
[2016-12-05] VITALS: BP 128/81; PULSE 71; RESP 17; TEMP 96.2; O2SAT 100
[2016-12-05] MEDS: SODIUM CHLOR 0.9% 1000 ML INJ 1,000 ML IV SCH (00:19)
[2016-12-05] MEDS: HEPARIN SODIUM - SQ 10,000 UNITS/ML VIAL SQ SCH (03:00)
[2016-12-05] MEDS: RESP: ALBUTEROL 2.5 MG/IPRATROPIUM 0.5 MG NEB (SCH) NEB ×2 (04:00→09:50)
[2016-12-05 06:00] LABS: BICARBONATE 24.8 MEQ/L (21.0-32.0); MAGNESIUM 2.1 MG/DL (1.5-2.5); POTASSIUM 4.9 MEQ/L (3.5-5.1)
[2016-12-05 06:19] LABS: AUTOMATED NEUTROPHIL # 3.5 TH/MM3 (1.8-7.7); BASOPHIL # 0.1 TH/MM3 (0-0.2); BASOPHIL % 0.8 % (0.0-2.0); EOSINOPHIL # 0.2 TH/MM3 (0-0.4); EOSINOPHIL % 3.3 % (0.0-4.0); HEMATOCRIT 33.2 % (39.0-51.0); HEMO FLAGS DIFF FINAL; LYMPH % 33.7 % (9.0-44.0); LYMPHOCYTE # 2.2 TH/MM3 (1.0-4.8); MEAN CELL VOLUME 93.6 FL (80.0-100.0); MEAN CORPUSCULAR HEMOGLOBIN 31.3 PG (27.0-34.0); MEAN CORPUSCULAR HGB CONC 33.5 % (32.0-36.0); MONO % 8.2 % (0.0-8.0); PLATELET COUNT 243 TH/MM3 (150-450); RED BLOOD COUNT 3.55 MIL/MM3 (4.50-5.90); RED CELL DISTRIBUTION WIDTH 13.9 % (11.6-17.2); WHITE BLOOD COUNT 6.6 TH/MM3 (4.0-11.0)
[2016-12-05 08:00] VITALS: BP 123/83; PULSE 73; RESP 20; TEMP 97.2; O2SAT 99
[2016-12-05] MEDS: CALCIUM CARBONATE 500 MG CHEWABLE TAB CHEW SCH (09:36)
[2016-12-05] MEDS: CLOPIDOGREL 75 MG TAB PO SCH (09:36)
[2016-12-05] MEDS: METOPROLOL TARTRATE 25 MG TAB PO SCH (09:36)
[2016-12-05] MEDS: ASPIRIN EC 81 MG TABEC PO SCH (09:37)
[2016-12-05] MEDS: PANTOPRAZOLE SOD 20 MG DELAYED RELEASE TAB PO SCH (09:37)
[2016-12-05] MEDS: DOCUSATE SODIUM 50 MG/SENNA 8.6 MG TAB PO SCH (09:37)
[2016-12-05] MEDS: ACETAMINOPHEN 325 MG TAB PO PRN (09:38)
[2016-12-05] MEDS ORDERED: ESOM1CAP16 PO (10:13)
[2016-12-05] MEDS ORDERED: GABA300C5 PO (10:13)
[2016-12-05] MEDS ORDERED: MISCMIS81 (11:13)
[2016-12-05] MEDS ORDERED: SODIUM BICARBONATE 8.4% INJ 100 MEQ in WATER STERILE FOR INJ 850 ML IV SCH (12:00)
--- NOTE | 2016-12-06 00:38 | HHI.DS ---
Discharge Summary Admission Date Dec 03, 2016 at 14:40 Discharge Date: Dec 05, 2016 Admitting Diagnosis Renal failure, copd exacerbation, hypoxia (1) Nausea and vomiting ICD Code: R11.2 - Nausea with vomiting, unspecified (2) Acute kidney injury ICD Code: N17.9 - Acute kidney failure, unspecified (3) Toxic encephalopathy ICD Code: G92 - Toxic encephalopathy (4) Marijuana abuse, continuous ICD Code: F12.10 - Marijuana abuse, continuous Status: Acute Procedures no invasive procedures performed. Brief History - From Admission 48-year-old male history of COPD, chronic back pain on gabapentin, neurofibromatosis, tobacco abuse, hypothyroidism, CAD who presents with progressively worsening fatigue, woke up today shaking. He is a poor historian. He reports decreased appetite, together with nausea and nonbloody vomiting over the past week. He denies any abdominal pain, but has abdominal tenderness on exam. He reports worsening fatigue. He ports a chronic cough, however denies any acute worsening of cough. He denies any chest pain. CBC/BMP: 12/05/16 0429 12/05/16 0429 Significant Findings Laboratory Tests Test 12/03/16 11:45 12/03/16 12:20 12/03/16 13:00 12/03/16 15:47 Red Blood Count 4.08 MIL/MM3 (4.50-5.90) Hemoglobin 12.6 GM/DL (13.0-17.0) Hematocrit 36.8 % (39.0-51.0) Monocytes (%) (Auto) 14.2 % (0.0-8.0) Monocytes # (Auto) 1.5 TH/MM3 (0-0.9) Prothrombin Time 9.6 SEC (9.8-11.6) Blood Urea Nitrogen 78 MG/DL (7-18) Creatinine 6.13 MG/DL (0.60-1.30) Albumin 3.3 GM/DL (3.4-5.0) Magnesium Level 2.9 MG/DL (1.5-2.5) Aspartate Amino Transf (AST/SGOT) 12 U/L (15-37) Sodium Level 129 MEQ/L (136-145) Chloride Level 86 MEQ/L (98-107) Carbon Dioxide Level 35.2 MEQ/L (21.0-32.0) Estimat Glomerular Filtration Rate 10 ML/MIN (>89) Total Creatine Kinase 31 U/L (39-308) Troponin I LESS THAN 0.02 NG/ML Blood Gas HCO3 33 mmol/L (22-26) Blood Gas Base Excess 8.9 mmol/L (-2-2) Blood Gas Oxygen Saturation 85 % (90-100) Arterial Blood pH 7.47 (7.380-7.420) Arterial Blood Partial Pressure CO2 45 mmHg (38-42) Arterial Blood Carboxyhemoglobin 8.4 % (0-4) Blood Gas Hemoglobin 11.1 G/DL (12.0-16.0) Urine Occult Blood TRACE (NEG) Urine Cannabinoids Screen POS (NEG) Test 12/03/16 20:38 12/04/16 06:33 12/05/16 04:29 Red Blood Count 3.54 MIL/MM3 (4.50-5.90) 3.55 MIL/MM3 (4.50-5.90) Hemoglobin 11.2 GM/DL (13.0-17.0) 11.1 GM/DL (13.0-17.0) Hematocrit 32.5 % (39.0-51.0) 33.2 % (39.0-51.0) Neutrophils (%) (Auto) 72.9 % (16.0-70.0) Monocytes (%) (Auto) 11.1 % (0.0-8.0) 8.2 % (0.0-8.0) Blood Urea Nitrogen 59 MG/DL (7-18) 31 MG/DL (7-18) Creatinine 3.06 MG/DL (0.60-1.30) 1.51 MG/DL (0.60-1.30) Albumin 2.8 GM/DL (3.4-5.0) 2.6 GM/DL (3.4-5.0) Calcium Level 8.2 MG/DL (8.5-10.1) 7.9 MG/DL (8.5-10.1) Aspartate Amino Transf (AST/SGOT) 10 U/L (15-37) Estimat Glomerular Filtration Rate 22 ML/MIN (>89) 49 ML/MIN (>89) Phosphorus Level 2.2 MG/DL (2.5-4.9) Chloride Level 113 MEQ/L (98-107) Imaging Last Impressions Chest X-Ray 12/03/16 1146 Signed Impressions: Service Date/Time: Saturday, December 03, 2016 12:50 - CONCLUSION: No acute disease. Fareed Lynn MD FACR Renal Ultrasound 12/03/16 0000 Signed Impressions: Service Date/Time: Saturday, December 03, 2016 16:23 - CONCLUSION: The kidneys are unremarkable in appearance with no evidence of hydronephrosis. Zac Zuniga MD Abdomen/Pelvis CT 12/03/16 0000 Signed Impressions: Service Date/Time: Saturday, December 03, 2016 19:05 - CONCLUSION: 1. Unremarkable bowel gas pattern with no inflammatory change or obstruction. 2. Unremarkable gallbladder. Zac Zuniga MD PE at Discharge GENERAL: patient sitting up in bed. Appears comfortable. Alert and oriented 3 SKIN: Warm and dry. HEAD: Normocephalic. EYES: No scleral icterus. No injection or drainage. NECK: Supple, trachea midline. No JVD. CARDIOVASCULAR: Regular rate and rhythm without murmurs, gallops, or rubs. RESPIRATORY: Breath sounds equal bilaterally. No accessory muscle use. GASTROINTESTINAL: Abdomen soft, non-tender, nondistended. MUSCULOSKELETAL: No cyanosis, or edema. BACK: Nontender without obvious deformity. No CVA tenderness. Pt update on day of discharge Patient in the morning prior to discharge. Says he is feeling all right. No tremors. No nausea or vomiting. Denies any chest pain or shortness of breath. We discussed staying away from narcotics and marijuana. Patient says he will do so. Patient agrees to follow up with primary care for repeat labs to monitor kidney function. Hospital Course Patient was admitted with creatinine of 6.13, likely secondary to dehydration. He says he had been outside all day. Also with bilateral tremors which improved with hydration. Creatinine 1.5 at discharge. Renal ultrasound as above. Nephrology followed during admission. Patient will need to follow with primary care for repeat labs. Medications were adjusted secondary to renal function. Gabapentin level still pending suspected toxic systole. Patient also had nausea and vomiting, which resolved by holding narcotics. Patient will avoid narcotics and marijuana as possible exasperates of nausea. From problem-based summary from most recent progress note, please see below. == 12/04/16. creatinine improving 3.0 today. Renal ultrasound with no acute findings. Continue IV fluids. Nausea and vomiting on admission has resolved currently. Continue PPI, Tums. Could be marijuana hyperemesis versus gastroparesis exacerbated by narcotics. Nevertheless has improved. recommend complete cessation of both marijuana and narcotics. //Acute kidney injury -Creatinine 6.13 from suspected normal baseline. -1 L out over the first hour after South placement. Possible obstruction. -Ultrasound ordered and pending. -Hold lisinopril. Hold gabapentin. -Renal ultrasound with no acute findings. -Nephrology consulted. //Abdominal tenderness on exam Could be secondary to constipation or recent narcotics. Patient with nausea, vomiting, poor by mouth intake likely causing acute kidney injury -periUmbilical Tenderness to palpation on exam. CT abdomen with no acute findings. //Suspected toxic Encephalopathy -Confused, but nonfocal. -Patient was on gabapentin, likely supratherapeutic levels now. -Also with uremia. -Asterixis secondary to uremia. -Nonfocal on exam. -Pain to monitor and Treat acute kidney injury as above. //both metabolic and Respiratory alkalosis. -ABG reviewed. -Hypoxia secondary to smoking, high carboxyhemoglobin content. likely secondary to dehydration, uremia versus gabapentin toxicity. -Continue IV fluids. Continue to monitor. //Hypovolemic Hyponatremia. Acute. -Sodium 126 on admission. -Likely secondary to dehydration. Unknown baseline. -IV fluids. Nephrology following. Appreciate assistance. //Possible COPD exacerbation Doubt that this is a standard COPD exacerbation. X-ray no acute findings. She received nebs, IV steroids in the ER without improvement. Duo nebs ordered. Continue to monitor. //Coronary artery disease. Continue home medications of metoprolol, Plavix. //Depression. We'll hold home medications until kidney function improves. //Chronic back pain. Hold gabapentin secondary to suspected toxicity. Tylenol as necessary //GERD. Continue PPI. //Narcotic abuse Patient reports feeling his brothers narcotics several days prior to admission. -Counseling provided. Patient says he will not do this again. //Tobacco abuse. Cessation counseling provided. //Prophylaxis. SCDs. Subcutaneous heparin. Discharge Planning if creatinine continues improving, possible discharge tomorrow. Pt Condition on Discharge: Good Discharge Disposition: Discharge Home Discharge Time: > 30 minutes Discharge Instructions DIET: Follow Instructions for: Heart Healthy Diet Activities you can perform: Regular-No Restrictions Follow up Referrals: PCP Follow-up - 1 Week New Medications: Esomeprazole DR (Esomeprazole DR) 40 Mg Capdr 40 MG PO DAILY for Reflux, #30 CAP 0 Refills Rollator Ultra-Light (Rollator Ultra-Light) 1 Mis Mis EA .ROUTE DIRECTED, #1 Changed Medications: Gabapentin (Gabapentin) 300 Mg Cap 300 MG PO HS for Pain Management, #30 CAP 0 Refills (Changed from: 600 MG; BID; 60) Continued Medications: Albuterol 6.7 GM Inh (Proventil Hfa 6.7 GM Inh) 90 Mcg/Act Aer 1 PUFF INH Q4-6H PRN for SHORTNESS OF BREATH, #1 INHALER 0 Refills Amitriptyline (Amitriptyline) 25 Mg Tab 25 MG PO HS, TAB Clopidogrel (Clopidogrel) 75 Mg Tab 75 MG PO DAILY for Blood Clot Prevention, #30 TAB 0 Refills Metoprolol Tartrate (Metoprolol Tartrate) 25 Mg Tab 25 MG PO BID, #60 TAB 0 Refills Discontinued Medications: Cyclobenzaprine (Flexeril) 5 Mg Tab 5 MG PO TID for Muscle Spasm, #90 TAB 0 Refills Lansoprazole (Lansoprazole) 15 Mg Capdr 15 MG PO DAILY, CAP 0 Refills Lisinopril (Lisinopril) 20 Mg Tab 20 MG PO DAILY, #30 TAB 0 Refills Venlafaxine (Effexor) 75 Mg Tab 75 MG PO DAILY, #30 TAB 0 Refills Jorge Luis Caldwell MD Dec 06, 2016 00:37
== END 2016-12-05 11:52 | disposition home or self-care (01) | DRG 682 ==
LOC: NEPE 11:24 → NEDH 14:40 → N07B 17:55
PROVIDERS: ADMIT Internal Medicine; ATTEND Internal Medicine
DX: N17.9 Acute kidney failure, unspecified (principal); G92 Toxic encephalopathy; E87.3 Alkalosis; E87.1 Hypo-osmolality and hyponatremia; E86.0 Dehydration; Q85.00 Neurofibromatosis, unspecified; I10 Essential (primary) hypertension; F32.9 Major depressive disorder, single episode, unspecified; Z99.3 Dependence on wheelchair; I25.10 Atherosclerotic heart disease of native coronary artery without angina pectoris; G89.29 Other chronic pain; M54.9 Dorsalgia, unspecified; K21.9 Gastro-esophageal reflux disease without esophagitis; F11.10 Opioid abuse, uncomplicated; F17.210 Nicotine dependence, cigarettes, uncomplicated; R11.2 Nausea with vomiting, unspecified; F12.10 Cannabis abuse, uncomplicated; E03.9 Hypothyroidism, unspecified; R27.8 Other lack of coordination; J44.9 Chronic obstructive pulmonary disease, unspecified; T67.5XXA Heat exhaustion, unspecified, initial encounter
CPT/HCPCS: 36600; 51702; 71010; 74176; 76775; 80053; 80069; 80171; 80307; 81001; 82550; 82570; 82805; 83605; 83735; 83880; 84300; 84443; 84484; 85025; 85610; 85730; 87040; 93005; 94640; 94664; 96361; 96374; 96375; J1644; J2405; J2930; J7030; Q0163; Q9963

== ENCOUNTER → 2017-08-09 | Outpatient (CLI) | payer MEDICAID ==
[~2017-08-09] MED LIST changes: +ALBU6.7H INH; -ALBU8I INH; +AMIT25TA9 PO; -ASPI81TA82 PO; -ATOR10 PO; -BACT800T5 PO; +CLOP75TA PO; +ESOM1CAP16 PO; +GABA300C5 PO; -GABA600T PO; -LEVO.025 PO; -METO25 PO; +METO25TA3 PO; +MISCMIS81
--- NOTE | 2017-08-09 14:44 | RADRPT ---
EXAM DATE/TIME: 08/09/2017 14:24 [facility] COMPARISON: No previous studies available for comparison. INDICATIONS : Shortness of breath. MEDICAL HISTORY : Chronic obstructive pulmonary disease. SURGICAL HISTORY : None. ENCOUNTER: Initial ACUITY: 2 weeks PAIN SCORE: 0/10 LOCATION: Bilateral chest FINDINGS: PA and lateral views of the chest demonstrate the lungs to be symmetrically aerated without evidence of mass, infiltrate or effusion. Moderate hyperinflation The cardiomediastinal contours are unremark able. Osseous structures are intact. CONCLUSION: Moderate hyperinflation otherwise negative Fareed Lynn MD FACR on August 09, 2017 at 14:41 Board Certified Radiologist. This report was verified electronically.
--- NOTE | 2017-08-12 12:09 | RSPPFT ---
DATE OF PROCEDURE: 08/09/17 COMMENTS: Spirometry with FVC of 1.6, FEV1 of 0.8, FEV1/FVC ratio 54%. A non-significant response to acutely inhaled bronchodilator noted. IMPRESSION: 1. Severe airways obstruction. 2. Non-significant response to acutely inhaled bronchodilator. 3. Severe reduction in diffusion capacity.
== END ==
LOC: HRSP 13:05
PROVIDERS: ATTEND Internal Medicine Sleep Medicine
DX: R06.89 Other abnormalities of breathing (principal)
CPT/HCPCS: 36600; 71046; 82805; 94060; 94729